=== PATIENT | female | born 1975 | race Caucasian/White ===

== ENCOUNTER 2016-06-09 10:09 | Emergency (ER) | payer OTHER ==
[~2016-06-09] VITALS: Ht 167.6 cm; Wt 77.2 kg
[~2016-06-09 10:09] MED LIST: CELEXA20 MG PO; EFFEXOR XR150 MG PO; RISPERDAL2 MG PO; RISPERIDONE1 MG PO
[2016-06-09 11:06] LABS: INTERNAL CONTROL VALID? YES
[2016-06-09 11:12] LABS: ADD MIUA? YES; BILIRUBIN NEGATIVE; GLUCOSE (STRIP) NEGATIVE; KETONES NEGATIVE; LEUKOCYTES NEGATIVE; NITRITE NEGATIVE; PROTEIN (STRIP) 100; SPECIFIC GRAVITY 1.019 (1.000-1.030); UROBILINOGEN 0.2 MG/DL (0.2-1.0)
[2016-06-09 11:14] LABS: BLOOD LARGE; COLOR BLOODY ((YELLOW))
[2016-06-09 11:24] LABS: BACTERIA RARE /HPF; EPITHELIAL CELLS RARE /HPF; MUCUS 2+ /LPF; RED BLOOD CELLS TNTC /HPF (0-5); UCUL ADDED? NO; WHITE BLOOD CELLS 0-5 /HPF (0-5)
[2016-06-09] MEDS ORDERED: ZANTAC150 MG PO (11:42)
[2016-06-09] MEDS ORDERED: OMEPRAZOLE20 MG PO (11:42)
[2016-06-09] MEDS ORDERED: ATARAX,VISTARIL25 MG PO (11:42)
[2016-06-09 11:52] VITALS: BP 129/83
== END 2016-06-09 11:53 | disposition home or self-care (01) ==
LOC: EME 10:09 → EXP 10:09
PROVIDERS: Nurse Practitioner Family
DX: R10.13 Epigastric pain (principal); K21.9 Gastro-esophageal reflux disease without esophagitis; F41.1 Generalized anxiety disorder; F31.9 Bipolar disorder, unspecified; F17.200 Nicotine dependence, unspecified, uncomplicated; Z71.6 Tobacco abuse counseling
CPT/HCPCS: 81003; 84703; 99281; 99284